=== PATIENT | female | born 1955 | race Caucasian/White ===

== ENCOUNTER → 2018-09-16 | Outpatient (CLI) | payer OTHER ==
[~2018-09-16] MED LIST: REGADENOSON 0.4 MG/5 ML SYRINGE ONE
== END | disposition home or self-care (01) ==
LOC: CFH 08:00
PROVIDERS: ATTEND Internal Medicine Cardiovascular Disease
DX: I08.1 Rheumatic disorders of both mitral and tricuspid valves (principal); J90 Pleural effusion, not elsewhere classified; I48.91 Unspecified atrial fibrillation; R06.02 Shortness of breath; I10 Essential (primary) hypertension
CPT/HCPCS: 78452; 93017; 93306; A9502; J2785

== ENCOUNTER 2018-09-19 10:54 | Outpatient (CLI) | payer OTHER | END 2018-09-19 23:59 | disposition home or self-care (01) | LOC: CFH 10:54 | PROVIDERS: ATTEND Nurse Practitioner Family | DX: I48.91 Unspecified atrial fibrillation (principal); E66.9 Obesity, unspecified; R03.0 Elevated blood-pressure reading, without diagnosis of hypertension; R06.02 Shortness of breath; S06.6X0S Traumatic subarachnoid hemorrhage without loss of consciousness, sequela; S22.42XS Multiple fractures of ribs, left side, sequela; S27.329D Contusion of lung, unspecified, subsequent encounter; X58.XXXS Exposure to other specified factors, sequela | CPT/HCPCS: 71046 ==

== ENCOUNTER 2018-12-19 06:37 | Day surgery (SDC) | payer OTHER ==
[~2018-12-19] VITALS: Ht 154.9 cm; Wt 75.0 kg
[2018-12-19] MEDS ORDERED: SODIUM CHLORIDE 0.9% 1,000 ML IV SCH (07:00)
[2018-12-19 07:01] VITALS: BP 141/96
[2018-12-19] MEDS ORDERED: CALCIUM PO (07:15)
[2018-12-19] MEDS ORDERED: HYDR25TA6 PO (07:15)
[2018-12-19] MEDS ORDERED: MELO15TA6 PO (07:15)
[2018-12-19] MEDS ORDERED: FLEC100T PO (07:15)
[2018-12-19] MEDS ORDERED: FISH OIL PO (07:15)
[2018-12-19] MEDS ORDERED: GLUC1TAB27 PO (07:15)
[2018-12-19] MEDS ORDERED: MULT-658 PO (07:20)
[2018-12-19] MEDS ORDERED: L. A1CAP14 PO (07:20)
[2018-12-19] MEDS ORDERED: C,E,1CAP PO (07:20)
[2018-12-19] MEDS ORDERED: VALA500T4 PO (07:20)
[2018-12-19] MEDS ORDERED: CHOL200074 PO (07:21)
[2018-12-19] MEDS ORDERED: ASPI81TA45 PO (07:21)
[2018-12-19] MEDS ORDERED: PROPOFOL 10 MG/ML, 20ML ONE (08:03)
== END 2018-12-19 09:32 | disposition home or self-care (01) ==
LOC: CACL 06:37
PROVIDERS: ATTEND Internal Medicine Cardiovascular Disease
DX: I34.0 Nonrheumatic mitral (valve) insufficiency (principal); I36.1 Nonrheumatic tricuspid (valve) insufficiency; I48.91 Unspecified atrial fibrillation; I10 Essential (primary) hypertension
CPT/HCPCS: 93312; 93321; 93325; J2704

== ENCOUNTER 2019-04-10 09:03 | Outpatient (CLI) | payer OTHER | END 2019-04-10 23:59 | disposition home or self-care (01) | LOC: STAR 09:03 | PROVIDERS: ATTEND Internal Medicine Cardiovascular Disease | DX: Z01.818 Encounter for other preprocedural examination (principal); I34.0 Nonrheumatic mitral (valve) insufficiency; R06.02 Shortness of breath; I51.7 Cardiomegaly; M41.86 Other forms of scoliosis, lumbar region | CPT/HCPCS: 36415; 71046; 80053; 85025; 85610; 85730 ==

== ENCOUNTER 2019-04-15 10:04 | Day surgery (SDC) | payer OTHER ==
[~2019-04-15] VITALS: Ht 154.9 cm; Wt 75.0 kg
[~2019-04-15 10:04] MED LIST changes: +ASPI81TA45 PO; +C,E,1CAP PO; +CALCIUM PO; +CHOL200074 PO; +FISH OIL PO; +FLEC100T PO; +GLUC1TAB27 PO; +HYDR25TA6 PO; +L. A1CAP14 PO; +MELO15TA6 PO; +MULT-658 PO; -REGADENOSON 0.4 MG/5 ML SYRINGE ONE; +VALA500T4 PO
[2019-04-15] MEDS ORDERED: SODIUM CHLORIDE 0.9% 1,000 ML IV SCH (11:00)
[2019-04-15] MEDS ORDERED: FENTANYL PF 100 MCG/2ML ONE (13:15)
[2019-04-15] MEDS ORDERED: LIDOCAINE 2%, 20ML ONE (13:15)
[2019-04-15] MEDS ORDERED: MIDAZOLAM 1 MG/ML, 5ML ONE (13:15)
[2019-04-15] MEDS ORDERED: NITROGLYCERIN 5 MG/ML, 10ML ONE (13:15)
[2019-04-15] MEDS ORDERED: HEPARIN 1,000 UNITS/ML, 10ML ONE (13:15)
[2019-04-15] MEDS ORDERED: VERAPAMIL 2.5 MG/ML, 2ML ONE (13:15)
[2019-04-15] MEDS ORDERED: BIVALIRUDIN 250 MG ONE (13:15)
== END 2019-04-15 15:20 | disposition home or self-care (01) ==
LOC: CACL 10:04
PROVIDERS: ATTEND Internal Medicine Cardiovascular Disease
DX: I34.0 Nonrheumatic mitral (valve) insufficiency (principal); I48.91 Unspecified atrial fibrillation; I10 Essential (primary) hypertension; Z79.899 Other long term (current) drug therapy
CPT/HCPCS: 93458; 99156; C1769; C1894; J1644; J2250; J3010; Q9967; J0583

== ENCOUNTER → 2019-10-27 | Outpatient (CLI) | payer OTHER | END | disposition home or self-care (01) | LOC: CVU 06:59 | PROVIDERS: ATTEND Internal Medicine Cardiovascular Disease | DX: I08.8 Other rheumatic multiple valve diseases (principal); I11.9 Hypertensive heart disease without heart failure; Z95.0 Presence of cardiac pacemaker | CPT/HCPCS: 93306 ==